=== PATIENT | female | born 1945 | race Caucasian/White ===

== ENCOUNTER → 2016-11-20 | Outpatient (CLI) | payer MEDICARE, BC | LOC: SP 14:51 | PROVIDERS: ATTEND Internal Medicine | DX: R09.89 Other specified symptoms and signs involving the circulatory and respiratory systems (principal) | CPT/HCPCS: 93880 ==

== ENCOUNTER → 2017-04-10 | Outpatient (CLI) | payer MEDICARE, BC ==
--- NOTE | 2017-04-10 11:23 | RADIOLOGY REPORT (SQ) ---
EXAM DESCRIPTION: CT CHEST WITHOUT COMPLETED DATE/TIME: 04/10/2017 11:08 am REASON FOR STUDY: ABNORMAL FINDINGS OF LUNG R91.8 OTHER NONSPECIFIC ABNORMAL FINDING OF LUNG FIELD COMPARISON: None. Correlation: CT abdomen pelvis 04/09/2017. TECHNIQUE: CT scan performed of the chest without intravenous contrast. Images reviewed with lung, soft tissue and bone windows. Reconstructed coronal and sagittal MPR images reviewed. All images st ored on PACS. All CT scanners at this facility use dose modulation, iterative reconstruction, and/or weight based d osing when appropriate to reduce radiation dose to as low as reasonably achievable (ALARA). [facility]: Dose Right [facility]: CareDose [facility]: Dose Right [facility]: Teradose 4D [facility]: [employer] RADIATION DOSE: Up-to-date CT equipment and radiation dose reduction techniques were employed. CTDIv ol: 5.4 mGy. DLP: 218 mGy-cm. mGy. LIMITATIONS: No technical limitations. FINDINGS: LUNGS AND PLEURA: Centrilobular emphysema. 10 mm spiculated nodule right upper lobe. No effusions. HILAR AND MEDIASTINAL STRUCTURES: No identified masses or abnormal nodes. No obvious aneurysm. HEART AND VASCULAR STRUCTURES: No aneurysm. No pericardial effusion. UPPER ABDOMEN: See separate report of the CT of the abdomen. THYROID AND OTHER SOFT TISSUES: No masses. No adenopathy. BONES: No significant finding. HARDWARE: None in the chest. OTHER: No other significant findings. IMPRESSION: COPD. 10 mm solitary pulmonary nodule. Consider correlation with PET-CT. TECHNICAL DOCUMENTATION: JOB ID: [id number] Quality ID # [id number]: Final reports with documentation of one or more dose reduction techniques (e.g., Au tomated exposure control, adjustment of the mA and/or kV according to patient size, use of iterative reconstruction technique) 2010 [employer]- All Rights Reserved
== END ==
LOC: RAD 10:22
PROVIDERS: ATTEND Physician Assistant
DX: R91.8 Other nonspecific abnormal finding of lung field (principal); J44.9 Chronic obstructive pulmonary disease, unspecified
CPT/HCPCS: 71250

== ENCOUNTER → 2017-04-24 | Outpatient (CLI) | payer MEDICARE, BC ==
--- NOTE | 2017-04-27 08:57 | RADIOLOGY REPORT (SQ) ---
EXAM DESCRIPTION: PET CT SKULL/THIGH COMPLETED DATE/TIME: 04/24/2017 12:33 pm REASON FOR STUDY: OTHER NONSPECIFIC ABNORMAL FINDINGS OF LUNG R91.8 OTHER NONSPECIFIC ABNORMAL FIND ING OF LUNG FIELD K76.89 OTHER SPECIFIED DISEASES OF LIVER COMPARISON: CT chest 04/10/2017 CT abdomen pelvis 04/09/2017 RADIONUCLIDE AND DOSE: 9.4 mCi F18 FDG The route of agent administration: Intravenous FASTING BLOOD SUGAR: 98 mg/dl CONTRAST TYPE AND DOSE: No CT contrast given. TECHNIQUE: Blood glucose level was verified. Above dose of FDG was injected intravenously. 2-D seg mented attenuation correction images were obtained from the base of the skull to the midthighs. Nonc ontrast CT images were obtained for attenuation correction and fusion with emission images. CT image s were performed without oral or intravenous contrast and are not sensitive for parenchymal lesions. A series of overlapping emission PET images were obtained. Images reviewed and manipulated at [facility] work station by the radiologist. Images stored on PACS. LIMITATIONS: None. FINDINGS: HEAD AND NECK: No areas of abnormal metabolic activity in the soft tissues of the head and neck. CHEST: In the periphery of the right upper lobe on axial images 67-70, a spiculated subpleural mass i s present 9 to 10 mm in diameter. This has metabolic activity, with SUV of 1.5 to 1.7, and is suspic ious for malignancy. A non metabolic 1.3 x 0.8 cm precarinal lymph node is present. ABDOMEN AND PELVIS: No areas of abnormal metabolic activity in the abdomen or pelvis. Expected physi ologic activity is present in the genitourinary system and bowel. No worrisome liver lesions PROXIMAL LOWER EXTREMITIES: No areas of abnormal metabolic activity in the soft tissues of the lower extremities. BONES: No abnormal metabolic activity in the visualized skeleton. ADDITIONAL CT FINDINGS: Patient has obstructive lung disease, and right basilar bandlike scarring or atelectasis. Calcified ascending aorta and moderate coronary artery calcification. Hiatal hernia. Gastric fundal diverticulum. Post hysterectomy. OTHER: Blood pool activity SUV 2.0, liver activity 2.3 IMPRESSION: Metabolically active 9 to 10 mm spiculated nodule in the periphery of the right upper lo be worrisome for malignancy. TECHNICAL DOCUMENTATION: JOB ID: [id number]- All Rights Reserved
== END ==
LOC: RAD 09:05
PROVIDERS: ATTEND Physician Assistant
DX: R91.1 Solitary pulmonary nodule (principal); J44.9 Chronic obstructive pulmonary disease, unspecified; K76.9 Liver disease, unspecified
CPT/HCPCS: 78815; A9552

== ENCOUNTER → 2019-02-02 | Day surgery (SDC) | payer MEDICARE, BC ==
[~2019-02-02] MED LIST: BUPIVACAINE HCL 0.5 % INJ/PF 30 ML SDV ONE; LIDOCAINE 1% INJ-PF (10 MG/ML) 30 ML SDV ONE; METHYLPREDNISOLONE ACETATE INJ 80 MG/1 ML VIAL ONE
--- NOTE | 2019-02-02 15:19 | RADIOLOGY REPORT (SQ) ---
EXAM DESCRIPTION: INJECT/ASPIR HIP/SHLDR/KNEE; FLUORO/NEEDLE PLACEMENT COMPLETED DATE/TIME: 02/02/2019 1:42 pm REASON FOR STUDY: M25.552 PAIN IN LEFT HIP M25.552 PAIN IN LEFT HIP COMPARISON: None. FLUOROSCOPY TIME: 0.3 minutes 1 images saved to PACS. LIMITATIONS: None. PROCEDURE: SITE OF INJECTION: Left hip LOCALIZING CONTRAST TYPE AND DOSE: 1 cc Omnipaque MEDICATION TYPE AND DOSE: Depo-Medrol 80 mg, 5 cc Sensorcaine Using local anesthesia and sterile technique with fluoroscopic guidance, the needle was advanced into the joint. Iodinated contrast was injected to verify intraarticular placement. This was followed by therapeutic injection of the indicated medications. The needle was removed. There were no immediat e complications. Preprocedure pain level: 5/5. Postprocedure pain level: 4/5. IMPRESSION: THERAPEUTIC INJECTION OF THE LEFT HIP JOINT ABOVE. COMMENT: Patient medication list reviewed: Yes- Quality ID# [id number]:Eligible professional attests to doc umenting in the medical record they obtained, updated, or reviewed the patient's current medications. . Quality ID 145: Final reports for procedures using fluoroscopy that document radiation exposure jayden mendez, or exposure time and number of fluorographic images (if radiation exposure indices are not avail able) TECHNICAL DOCUMENTATION: JOB ID: [id number] [employer]- All Rights Reserved Reading location - IP/workstation name: [email or web address]
== END ==
LOC: RAD 12:34
PROVIDERS: ATTEND Orthopaedic Surgery
DX: M25.552 Pain in left hip (principal)
CPT/HCPCS: 20610; 77002; J3490 ×2; J1040

== ENCOUNTER → 2019-03-27 | Outpatient (CLI) | payer MEDICARE, BC ==
--- NOTE | 2019-03-28 08:55 | RADIOLOGY REPORT (SQ) ---
EXAM DESCRIPTION: PET CT SKULL/THIGH COMPLETED DATE/TIME: 03/27/2019 9:08 pm REASON FOR STUDY: (R91.1)SOLITARY PULMONARY NODULE R91.1 SOLITARY PULMONARY NODULE COMPARISON: 04/24/2017. RADIONUCLIDE AND DOSE: 10 mCi F18 FDG The route of agent administration: Intravenous FASTING BLOOD SUGAR: 92 mg/dl CONTRAST TYPE AND DOSE: No CT contrast given. TECHNIQUE: Blood glucose level was verified. Above dose of FDG was injected intravenously. 2-D seg mented attenuation correction images were obtained from the base of the skull to the midthighs. Nonc ontrast CT images were obtained for attenuation correction and fusion with emission images. CT image s were performed without oral or intravenous contrast and are not sensitive for parenchymal lesions. A series of overlapping emission PET images were obtained. Images reviewed and manipulated at [facility] work station by the radiologist. Images stored on PACS. LIMITATIONS: None. FINDINGS: HEAD AND NECK: No areas of abnormal metabolic activity in the soft tissues of the head and neck. CHEST: The previously seen nodule in the right upper lobe has decreased in size and now measures 6 mm . Mean SUV value 1.38. Adjacent there is a linear parenchymal density measuring 0.3 x 1.4 cm. Mean SUV 1.52. No areas of abnormal metabolic activity in the chest. ABDOMEN AND PELVIS: No areas of abnormal metabolic activity in the abdomen or pelvis. Expected physi ologic activity is present in the genitourinary system and bowel. PROXIMAL LOWER EXTREMITIES: No areas of abnormal metabolic activity in the soft tissues of the lower extremities. BONES: No abnormal metabolic activity in the visualized skeleton. ADDITIONAL CT FINDINGS: No additional significant findings on the noncontrast CT images. OTHER: Background blood pool activity mean SUV 1.58. Background liver activity mean SUV 2.16. No ot her significant findings. IMPRESSION: 1. EMPHYSEMATOUS CHANGES. THE PREVIOUSLY SEEN NODULE IN THE RIGHT UPPER LOBE HAS DECREASED IN SIZE S GEMAM APRIL 2017. THERE IS A LINEAR PARENCHYMAL DENSITY ADJACENT TO THE NODULE MOST LIKELY DUE TO SCAR . MILDLY INCREASED ACTIVITY WHICH IS LESS THAN BACKGROUND BLOOD POOL AND LIVER ACTIVITY. FINDINGS A RE MOST LIKELY DUE TO CHRONIC INFLAMMATORY PROCESS. 2. NO OTHER SIGNIFICANT FINDINGS. TECHNICAL DOCUMENTATION: JOB ID: [id number] [employer]- All Rights Reserved Reading location - IP/workstation name: [email or web address]
== END ==
LOC: RAD 14:44
PROVIDERS: ATTEND Internal Medicine Critical Care Medicine
DX: R91.1 Solitary pulmonary nodule (principal)
CPT/HCPCS: 78815; A9552

== ENCOUNTER 2019-12-03 22:29 | Emergency (ER) | payer MEDICARE, BC ==
--- NOTE | 2019-12-03 22:46 | ER Document Report ---
ED Medical Screen (RME) - General Stated Complaint: DIFFICULTY BREATHING Primary Care Provider: KARON ESCALANTE MD [Primary Care Provider] - Follow up as needed Notes: Patient is a 74-year-old white female with a past medical history of COPD, smoking cigarettes who presents to the emergency department the chief complaint of right-sided chest wall pain. Was seen by an outpatient physician for this couple days ago, had x-rays and work-up revealing no obvious findings. Patient states tonight when lying down the pain felt worse. It is worse with movement and palpation. Worse with deep inspiration. She states she feels like this is either a "collapsed lung or pleurisy". She denies any shortness of breath. I have treated and performed a rapid initial assessment of this patient. A comprehensive ED assessment and evaluation of the patient, analysis of test results and completion of medical decision making process will be conducted by additional ED providers. PHYSICAL EXAMINATION: GENERAL: Well-appearing, well-nourished and in no acute distress. A&Ox4. Answers questions appropriately. TRAVEL OUTSIDE OF THE [place] IN LAST 30 DAYS: No - Related Data Allergies/Adverse Reactions: Penicillins Allergy (Verified 05/31/14 11:33) RASH Past Medical History - Past Medical History Cardiac Medical History: Reports: Hx Hypercholesterolemia, Hx Hypertension Denies: Hx Heart Attack Pulmonary Medical History: Reports: Hx Asthma, Hx COPD Neurological Medical History: Denies: Hx Cerebrovascular Accident, Hx Seizures GI Medical History: Reports: Hx Gastroesophageal Reflux Disease, Hx Hiatal Hernia. Denies: Hx Hepatitis, Hx Ulcer Infectious Medical History: Denies: Hx Hepatitis Past Surgical History: Reports: Hx Hysterectomy. Denies: Hx Mastectomy, Hx Open Heart Surgery, Hx Pacemaker - Immunizations Hx Diphtheria, Pertussis, Tetanus Vaccination: Yes Physical Exam - Vital signs Vitals: Temp Pulse Resp BP Pulse Ox 97.5 F 90 20 142/82 H 95 12/03/19 22:38 12/03/19 22:38 12/03/19 22:38 12/03/19 22:38 12/03/19 22:38 Course - Vital Signs Vital signs: Temp Pulse Resp BP Pulse Ox 97.5 F 90 20 142/82 H 95 12/03/19 22:38 12/03/19 22:38 12/03/19 22:38 12/03/19 22:38 12/03/19 22:38 Doctor's Discharge - Discharge Referrals: KARON ESCALANTE MD [Primary Care Provider] - Follow up as needed
[2019-12-03] MEDS ORDERED: ONDANSETRON HCL INJ/PF 4 MG/2 ML SDV IV ONE (23:23)
[2019-12-03] MEDS ORDERED: MORPHINE SULFATE 10 MG/ML INJ IV ONE ×2 (23:23)
--- NOTE | 2019-12-03 23:30 | RADIOLOGY REPORT (SQ) ---
EXAM DESCRIPTION: XR CHEST 2 VIEWS COMPLETED DATE/TME: 12/03/2019 22:42 CLINICAL HISTORY: 74 years, Female, ? pneumo COMPARISON: Prior CT dated 03/27/2019 NUMBER OF VIEWS: Two TECHNIQUE: Frontal and lateral radiographs of the chest were obtained. LIMITATIONS: None. FINDINGS: Cardiac and mediastinal contours are normal. Bands of opacity are noted about the right midlung zone as well as both lung bases, either indicating areas of atelectasis and/or scar. Lungs are otherwise clear. No pleural effusion or pneumothorax. IMPRESSION: No acute disease. copyright 2010 [employer]- All Rights Reserved
--- NOTE | 2019-12-03 23:36 | ER Document Report ---
ED Respiratory Problem - General Chief Complaint: Rib Pain Stated Complaint: DIFFICULTY BREATHING Time Seen by Provider: 12/03/19 23:15 Primary Care Provider: KARON ESCALANTE MD [Primary Care Provider] - Follow up as needed Notes: CHIEF COMPLAINT: Right pleuritic pain for 3 to 4 days without fever HPI: 74-year-old female with COPD history also with history of hypertension high cholesterol presenting for evaluation of right pleuritic pain for the last 3 to 4 days, no trauma. No fever. Denies abdominal pain nausea vomiting. Patient states it hurts in the right lower chest wall when she takes a deep breath in, no rash. ROS: See HPI - all other systems were reviewed and are otherwise negative Constitutional: no fever Eyes: no drainage, no blurred vision ENT: no runny nose, no sore throat Cardiovascular: + chest pain Resp: + SOB, no cough GI: no vomiting, no diarrhea, no abdominal pain : no dysuria Integumentary: no rash Allergy: no hives Musculoskeletal: no extremity pain or swelling Neurological: no numbness/tingling, no weakness MEDICATIONS: I agree with the patient medications as charted by the RN. ALLERGIES: I agree with the allergies as charted by the RN. PAST MEDICAL HISTORY/PAST SURGICAL HISTORY: Reviewed and agree as charted by RN. SOCIAL HISTORY: Reviewed and agree as charted by RN. FAMILY HISTORY: No significant familial comorbid conditions directly related to patient complaint EXAM: Reviewed vital signs as charted by RN. CONSTITUTIONAL: Alert and oriented and responds appropriately to questions. Well-appearing; well-nourished, moderate distress secondary to pain HEAD: Normocephalic; atraumatic EYES: PERRL; Conjunctivae clear, sclerae non-icteric ENT: normal nose; no rhinorrhea; moist mucous membranes; pharynx without lesions noted, no uvula edema or deviation, no tonsillar hypertrophy, phonation normal NECK: Supple without meningismus; non-tender; no cervical lymphadenopathy, no masses CARD: RRR; no murmurs, no clicks, no rubs, no gallops; symmetric distal pulses RESP: Slight splinting and mild tachypnea; breath sounds clear and equal bilaterally; no wheezes, no rhonchi, no rales, pulse oximetry 94% on room air mildly hypoxic ABD/GI: Normal bowel sounds; non-distended; soft, non-tender, no rebound, no guarding; no palpable organomegaly or masses. BACK: The back appears normal and is non-tender to palpation, there is no CVA tenderness EXT: Normal ROM in all joints; non-tender to palpation; no cyanosis, no effusions, no edema SKIN: Normal color for age and race; warm; dry; good turgor; no acute lesions noted NEURO: Moves all extremities equally; Motor and sensory function intact PSYCH: The patient's mood and manner are appropriate. Grooming and personal hygiene are appropriate. MDM: 74-year-old female presenting with right pleuritic pain for 3 to 4 days, COPD history. Chest x-ray on my review does show perhaps a slight effusion in the right lower lobe and fissure. Will obtain screening labs including cardiac labs, plan for CT of the chest to evaluate for PE or possible bleb or pneumothorax TRAVEL OUTSIDE OF THE [place] IN LAST 30 DAYS: No - Related Data Allergies/Adverse Reactions: Penicillins Allergy (Verified 05/31/14 11:33) RASH Past Medical History - Social History Smoking Status: Current Every Day Smoker Chew tobacco use (# tins/day): No Frequency of alcohol use: None Drug Abuse: None Family History: None Patient has suicidal ideation: No Patient has homicidal ideation: No - Past Medical History Cardiac Medical History: Reports: Hx Hypercholesterolemia, Hx Hypertension Denies: Hx Heart Attack Pulmonary Medical History: Reports: Hx Asthma, Hx COPD Neurological Medical History: Denies: Hx Cerebrovascular Accident, Hx Seizures GI Medical History: Reports: Hx Gastroesophageal Reflux Disease, Hx Hiatal Hernia. Denies: Hx Hepatitis, Hx Ulcer Infectious Medical History: Denies: Hx Hepatitis Past Surgical History: Reports: Hx Hysterectomy. Denies: Hx Mastectomy, Hx Open Heart Surgery, Hx Pacemaker - Immunizations Hx Diphtheria, Pertussis, Tetanus Vaccination: Yes Physical Exam - Vital signs Vitals: Temp Pulse Resp BP Pulse Ox 97.5 F 90 20 142/82 H 95 12/03/19 22:38 12/03/19 22:38 12/03/19 22:38 12/03/19 22:38 12/03/19 22:38 Course - Re-evaluation Re-evalutation: 12/04/19 03:36 CT imaging does not show acute emergent abnormalities. I discussed this at length with the patient. Her lab work is normal. Likely pleuritic chest discomfort. Low suspicion for ACS. Will place patient on anti-inflammatories. She indicates that she has taken Percocet in the past but normally breaks the pills in half. Will give patient incentive spirometry. Follow-up PCP. Discussed with Dr. Santiago, Attending prior to DC - Vital Signs Vital signs: Temp Pulse Resp BP Pulse Ox 97.5 F 90 20 143/75 H 94 12/03/19 22:38 12/03/19 22:38 12/04/19 03:00 12/04/19 01:01 12/04/19 03:00 - Laboratory Result Diagrams: 12/03/19 23:30 12/03/19 23:30 Laboratory results interpreted by me: 12/03/19 12/03/19 23:30 23:30 WBC 13.3 H RDW 16.2 H Absolute Neuts (auto) 10.4 H Seg Neutrophils % 78.6 H Sodium 135.9 L BUN 35 H Glucose 120 H Discharge - Discharge Clinical Impression: Pleuritic chest pain Condition: Stable Disposition: HOME, SELF-CARE Instructions: Pleurisy (OM) Additional Instructions: Use the incentive spirometer as instructed. Pain medications as prescribed, if you find that the narcotic pain medications are too strong please break the pills in half, watch for balance issues when taking stronger pain medications. Prescriptions: Meloxicam [Mobic] 7.5 mg PO DAILY #20 tablet Oxycodone HCl/Acetaminophen [Percocet 5-325 mg Tablet] 0.5 - 1 tab PO Q4H PRN #15 tablet PRN Reason: Referrals: KARON ESCALANTE MD [Primary Care Provider] - Follow up as needed
[2019-12-03 23:50] LABS: ABSOLUTE BASOPHILS # (AUTO) 0.1 10^3/uL (0.0-0.2); ABSOLUTE EOSINOPHILS # (AUTO) 0.2 10^3/uL (0.0-0.6); ABSOLUTE LYMPHOCYTES (AUTO) 1.9 10^3/uL (0.5-4.7); ABSOLUTE MONOCYTES (AUTO) 0.7 10^3/uL (0.1-1.4); ABSOLUTE NEUT (AUTO) 10.4 10^3/uL (1.7-8.2); BASOPHILS % (AUTO) 0.4 % (0-2); EOSINOPHILS % (AUTO) 1.5 % (0-6); HEMATOCRIT 42.4 % (36.0-47.0); HEMOGLOBIN 14.3 g/dL (12.0-15.5); LYMPHOCYTES % (AUTO) 14.1 % (13-45); MEAN CORPUSCULAR HEMOGLOBIN 30.5 pg (27.0-33.4); MEAN CORPUSCULAR HGB CONC 33.6 g/dL (32.0-36.0); MEAN CORPUSCULAR VOLUME 91 fl (80-97); MONOCYTES % (AUTO) 5.4 % (3-13); PLATELET COUNT 182 10^3/uL (150-450); RED BLOOD COUNT 4.68 10^6/uL (3.72-5.28); RED CELL DISTRIBUTION WIDTH 16.2 % (11.5-14.0); SEGMENTED NEUTROPHILS % (AUTO) 78.6 % (42-78); TOTAL CELLS COUNTED % (AUTO) 100 %; WHITE BLOOD COUNT 13.3 10^3/uL (4.0-10.5)
[2019-12-04 00:04] LABS: ALBUMIN 4.2 g/dL (3.5-5.0); ALKALINE PHOSPHATASE 88 U/L (38-126); ANION GAP 9 (5-19); ASPARTATE AMINO TRANSFERASE 23 U/L (14-36); BILIRUBIN,TOTAL 0.5 mg/dL (0.2-1.3); BLOOD UREA NITROGEN 35 mg/dL (7-20); CALCIUM 9.7 mg/dL (8.4-10.2); CARBON DIOXIDE 27 mmol/L (22-30); CHLORIDE 100 mmol/L (98-107); GLUCOSE 120 mg/dL (75-110); TOTAL PROTEIN 6.8 g/dL (6.3-8.2)
[2019-12-04 00:14] LABS: INTERNATIONAL RATION (INR) 0.83; PROTHROMBIN TIME 11.4 SEC (11.4-15.4)
[2019-12-04 00:18] LABS: NT PRO BNP 26 pg/mL (<125)
[2019-12-04 00:19] LABS: TROPONIN I < 0.012 ng/mL
--- NOTE | 2019-12-04 02:29 | RADIOLOGY REPORT (SQ) ---
CLINICAL HISTORY: right pleuritic pain r/o PE COMPARISON: PET CT March 27, 2019. TECHNIQUE: CT CHEST ANGIOGRAPHY WITHOUT THEN WITH IV CONTRAST on 12/03/2019 11:22 PM SIZING SPONGER. MIPS reconstructions were generated. This exam was performed according to our departmental dose-optimization program, which includes automated exposure control, adjustment of the mA and/or kV according to patient size and/or use of iterative reconstruction technique. MIP images were generated. FINDINGS: Thoracic aorta is moderately calcified without aneurysm. Pulmonary arteries are adequately opacified without acute or chronic filling defects. The heart is mildly enlarged. There is no pericardial effusion. Intrathoracic lymph nodes are not enlarged. There is no pleural effusion, pleural thickening or pneumothorax. Central airways are patent. There is vague bibasilar airspace disease. There is upper lung centrilobular emphysema. There is a small cluster of nodules in the right upper lobe measuring up to 8 mm.. In the upper abdomen, left adrenal gland contains a nodule measuring 1.5 cm. There are no acute osseous findings. No suspicious bony lesions. IMPRESSION: No aortic dissection or aneurysm. No pulmonary embolus. Residual clustered nodules in the right upper lobe at the site of prior presumed malignancy.
[2019-12-04] MEDS ORDERED: KETOROLAC TROMETHAMINE INJ/PF 30 MG/1 ML SDV IV ONE (02:48)
[2019-12-04] MEDS ORDERED: OXYCODONE-ACETAMINOPHEN 5-325 MG TABLET PO ONE (02:49)
[2019-12-04 03:59] VITALS: BP 137/80
[2019-12-04 05:32] LABS: APPEARANCE,URINE CLEAR; BILIRUBIN,URINE NEGATIVE (NEGATIVE); COLOR,URINE YELLOW; GLUCOSE, URINE NEGATIVE (NEGATIVE); KETONES,URINE NEGATIVE (NEGATIVE); LEUKOCYTE ESTERASE,URINE NEGATIVE (NEGATIVE); NITRITE,URINE NEGATIVE (NEGATIVE); PROTEIN,URINE NEGATIVE (NEGATIVE); URINE SPECIFIC GRAVITY 1.041; UROBILINOGEN,URINE NEGATIVE mg/dL (<2.0)
--- NOTE | 2019-12-04 09:45 | EKG REPORT ---
SEVERITY:- ABNORMAL ECG - SINUS RHYTHM LEFT VENTRICULAR HYPERTROPHY VS OLD ANTEROSEPTAL MA : Confirmed by: Sami Porter MD 04-Dec-2019 09:44:00
== END 2019-12-04 03:59 | disposition home or self-care (01) ==
LOC: ER 22:29
DX: R07.81 Pleurodynia (principal); J44.9 Chronic obstructive pulmonary disease, unspecified; I10 Essential (primary) hypertension; R07.1 Chest pain on breathing; F17.200 Nicotine dependence, unspecified, uncomplicated; Z88.0 Allergy status to penicillin
CPT/HCPCS: 93005; 99284; 96374; 96375; 36415; 85025; 85610; 80053; 81001; 84484; 83880; 71046; 71275; 93010; J1885; J2270; A9270; J2405

== ENCOUNTER 2020-03-04 22:22 | Emergency (ER) | payer MEDICARE, BC ==
--- NOTE | 2020-03-04 22:46 | ER Document Report ---
ED Medical Screen (RME) - General Chief Complaint: Abdominal Pain Stated Complaint: CONSTIPATION Time Seen by Provider: 03/04/20 22:38 Primary Care Provider: KARON ESCALANTE MD [Primary Care Provider] - Follow up as needed Mode of Arrival: Wheelchair Information source: Patient Notes: 75-year-old female presents to ED for abdominal pain and constipation. 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 She states one eye is "cross eyed, the other 1 is numb. She also has the left vaginal and buttocks area is numb due to the tumors. She did have radiation treatment for the tumor. She also has a history of stage IV lung cancer high blood pressure and cholesterol. She has had a total left hip replacement and biopsies to the tumors in her head. She is also had biopsies to the lung cancer. She is alert and oriented answering all questions appropriately. She states she has bad numbness and pain with the constipation. We will get a acute abdomen series and have her follow-up with another provider. I have greeted and performed a rapid initial assessment of this patient. A comprehensive ED assessment and evaluation of the patient, analysis of test results and completion of medical decision making process will be conducted by an additional ED providers. TRAVEL OUTSIDE OF THE [place] IN LAST 30 DAYS: No - Related Data Allergies/Adverse Reactions: Penicillins Allergy (Verified 05/31/14 11:33) RASH Past Medical History - Past Medical History Cardiac Medical History: Reports: Hx Hypercholesterolemia, Hx Hypertension Denies: Hx Heart Attack Pulmonary Medical History: Reports: Hx Asthma, Hx COPD Neurological Medical History: Denies: Hx Cerebrovascular Accident, Hx Seizures GI Medical History: Reports: Hx Gastroesophageal Reflux Disease, Hx Hiatal Hernia. Denies: Hx Hepatitis, Hx Ulcer Infectious Medical History: Denies: Hx Hepatitis Past Surgical History: Reports: Hx Hysterectomy. Denies: Hx Mastectomy, Hx Open Heart Surgery, Hx Pacemaker - Immunizations Hx Diphtheria, Pertussis, Tetanus Vaccination: Yes Physical Exam - Vital signs Vitals: Temp Pulse Resp BP Pulse Ox 98.0 F 102 H 13 156/83 H 96 03/04/20 22:29 03/04/20 22:29 03/04/20 22:29 03/04/20 22:29 03/04/20 22:29 Course - Vital Signs Vital signs: Temp Pulse Resp BP Pulse Ox 98.0 F 102 H 13 156/83 H 96 03/04/20 22:29 03/04/20 22:29 03/04/20 22:29 03/04/20 22:29 03/04/20 22:29 Doctor's Discharge - Discharge Referrals: KARON ESCALANTE MD [Primary Care Provider] - Follow up as needed
[2020-03-04] MEDS ORDERED: LIDOCAINE 2% URO-JET 5 ML KIT MM ONE (23:13)
[2020-03-04] MEDS ORDERED: MINERAL OIL 30 ML UDCUP PR ONE (23:13)
--- NOTE | 2020-03-04 23:17 | RADIOLOGY REPORT (SQ) ---
EXAM DESCRIPTION: XR ABDOMEN SUPINE AND ERECT WITH CHEST (ABD ACUTE SERIES) COMPLETED DATE/TME: 03/04/2020 22:42 CLINICAL HISTORY: 75 years, Female, Constipation COMPARISON: Chest x-ray 12/03/2019 NUMBER OF VIEWS: 3 TECHNIQUE: Upright chest with supine and erect views of the abdomen LIMITATIONS: None. FINDINGS: The heart size is normal. Atheromatous change of the thoracic aorta. Osteopenia. Biapical pleural thickening. Nodular density in the lateral right lung base which may in part reflect overlying soft tissues. Expansile lesion of the right ninth rib is also considered. Scarring in the right upper lobe as before. No free air under the hemidiaphragms. No pneumothorax. Nonspecific, nonobstructive bowel gas pattern. Large amount stool in the colon. Left hip prosthesis. No free air IMPRESSION: Vague nodular density in the lateral right lung base may in part reflect overlying soft tissues, versus an expansile lesion of the adjacent posterior right ninth rib. Large amount stool in the colon. copyright 2010 [employer]- All Rights Reserved
--- NOTE | 2020-03-04 23:19 | ER Document Report ---
ED GI/ - General Chief Complaint: Abdominal Pain Stated Complaint: CONSTIPATION Time Seen by Provider: 03/04/20 22:38 Primary Care Provider: KARON ESCALANTE MD [NO LOCAL MD] - Follow up as needed Mode of Arrival: Wheelchair Notes: Patient is a 75-year-old female that comes to the emergency department for chief complaint of no bowel movement for the past 2 to 3 days. She states she has ta yuniel a number, the stool softener and she tried to give herself a fleets enema with only minimal watery results. Patient actually denies any abdominal pain, she is still able to eat, she denies vomiting, fever, flank pain, or any other complaints. 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 Patient has vaginal and buttock area numbness secondary to brain tumor, she also has significant blindness. She has had a hysterectomy, she denies blood thinner use, she has a history of COPD, hypertension, hyperlipidemia. at bedside. TRAVEL OUTSIDE OF THE [place] IN LAST 30 DAYS: No - Related Data Allergies/Adverse Reactions: Penicillins Allergy (Verified 03/04/20 22:56) RASH Past Medical History - General Information source: Patient - Social History Smoking Status: Current Every Day Smoker Chew tobacco use (# tins/day): No Frequency of alcohol use: None Drug Abuse: None Family History: None Patient has homicidal ideation: No - Past Medical History Cardiac Medical History: Reports: Hx Hypercholesterolemia, Hx Hypertension Denies: Hx Heart Attack Pulmonary Medical History: Reports: Hx Asthma, Hx COPD Neurological Medical History: Denies: Hx Cerebrovascular Accident, Hx Seizures GI Medical History: Reports: Hx Gastroesophageal Reflux Disease, Hx Hiatal Hernia. Denies: Hx Hepatitis, Hx Ulcer Infectious Medical History: Denies: Hx Hepatitis Past Surgical History: Reports: Hx Hysterectomy. Denies: Hx Mastectomy, Hx Open Heart Surgery, Hx Pacemaker - Immunizations Hx Diphtheria, Pertussis, Tetanus Vaccination: Yes Review of Systems - Review of Systems Constitutional: See HPI EENT: No symptoms reported Cardiovascular: No symptoms reported Respiratory: No symptoms reported Gastrointestinal: See HPI Genitourinary: No symptoms reported Female Genitourinary: No symptoms reported Musculoskeletal: No symptoms reported Skin: No symptoms reported Hematologic/Lymphatic: No symptoms reported Neurological/Psychological: No symptoms reported Physical Exam - Vital signs Vitals: Temp Pulse Resp BP Pulse Ox 98.0 F 102 H 13 156/83 H 96 03/04/20 22:29 03/04/20 22:29 03/04/20 22:29 03/04/20 22:29 03/04/20 22:29 - Notes Notes: GENERAL: Frail and somewhat chronically ill-appearing, however she does not appear to be in distress, she is alert and interactive HEAD: Normocephalic, atraumatic. EYES: Patient with near blindness. Extraocular movements intact. ENT: Oral mucosa moist, tongue midline. Oropharynx unremarkable. Airway patent. NECK: Full range of motion. Supple. Trachea midline. No lymphadenopathy. LUNGS: Decreased breath sounds bilaterally. Occasional congested cough. No tachypnea or labored breathing. No respiratory distress. HEART: Regular rate and rhythm. No murmur ABDOMEN: Soft, non-tender. No significant distension noted. No rigidity or guarding. Bowel sounds present in all 4 quadrants. EXTREMITIES: Moves all 4 extremities spontaneously. No edema, normal radial and dorsalis pedis pulses bilaterally. No cyanosis. BACK: no cervical, thoracic, lumbar midline tenderness. No saddle anesthesia, normal distal neurovascular exam. Moves all extremities in full range of motion. NEUROLOGICAL: Alert and oriented x3. Normal speech. Cranial nerves II through XII grossly intact. Strength 5/5 in all extremities. PSYCH: Normal affect, normal mood. SKIN: Warm, dry, normal turgor. No rashes or lesions noted. Course - Re-evaluation Re-evalutation: Patient has occasional congested cough and she is somewhat tremulous, she states this is her baseline. She does have a soft benign abdomen, has bowel sounds, there is no significant rigidity or distention. I did offer to perform laboratory work-up including blood test, urine test, and potentially a CAT scan for abdominal pain but patient insists she is not having any abdominal pain and she would prefer not to have any work-up other than her x-ray. She states she is here for an enema and that is all she wants. Patient is also electing not to proceed with additional chemotherapy or radiation in the future, she told me this specifically. We will proceed with patient's requests. 05/18/20 00:50 Acute abdominal series shows constipation, vague nodular density in the right lung base. No obstruction. Patient was given an enema, she does have notable external hemorrhoids as well. She has no bleeding or any other concerning findings. She did have some results with some hard stool and liquid stool. Aft erwards patient states this is what she was hoping for and she wants to go home. We will give additional treatments for stool softeners and hemorrhoids at home. I discussed with patient follow-up with her oncologist and primary care, she states she will no longer be following up with her oncologist, she has decided she is going to stop radiation and let things take the natural progressing course. Patient states appreciation for care, states she is ready to go home. I discussed with and patient, encouraged him to return for any concerning symptoms or if something is not right. They state appreciation and agreement. Stable and well-appearing at time of discharge. - Vital Signs Vital signs: Temp Pulse Resp BP Pulse Ox 97.5 F 95 18 160/90 H 95 03/05/20 00:48 03/05/20 00:48 03/05/20 00:48 03/05/20 00:48 03/05/20 00:48 Discharge - Discharge Clinical Impression: Abdominal discomfort, External hemorrhoid Constipation Qualifiers: Constipation type: drug induced constipation Qualified Code(s): K59.03 - Drug induced constipation Condition: Stable Disposition: HOME, SELF-CARE Additional Instructions: Your imaging does show constipation. Hopefully the enema today will continue to help, I recommend that you take 2 doses of your MiraLAX daily for the next few days as well. You can also take the provided magnesium citrate (such as 1/4 to 1/2 of the magnesium citrate, then if after several hours you do not have bowel movement results drink another 1/4 to 1/2 for additional results). Also use the suppository and your hemorrhoid cream. Follow-up with primary care for additional management. Return if you worsen including developing pain, vomiting, fever, or any other concerning or worsening symptoms. Prescriptions: Phenylephrine HCl [Anusol Suppository] 1 supp.rect [place] BID #[id number] supp.rect Referrals: KARON ESCALANTE MD [NO LOCAL MD] - Follow up as needed
[2020-03-05] MEDS ORDERED: MAGNESIUM CITRATE 296 ML BOTTLE PO ONE (00:42)
[2020-03-05 00:49] VITALS: BP 160/90
== END 2020-03-05 00:51 | disposition home or self-care (01) ==
LOC: ER 22:22
DX: K59.03 Drug induced constipation (principal); K64.4 Residual hemorrhoidal skin tags; R10.9 Unspecified abdominal pain; R05 Cough; H54.7 Unspecified visual loss; C34.90 Malignant neoplasm of unspecified part of unspecified bronchus or lung; C79.31 Secondary malignant neoplasm of brain; Z79.899 Other long term (current) drug therapy; J44.9 Chronic obstructive pulmonary disease, unspecified; I10 Essential (primary) hypertension; E78.5 Hyperlipidemia, unspecified; F17.200 Nicotine dependence, unspecified, uncomplicated
CPT/HCPCS: 99283; 74022; A9270 ×3; J3490